=== PATIENT | female | born 1965 | race Caucasian/White ===

== ENCOUNTER → 2020-07-07 14:01 | Outpatient (CLI) | payer OTHER, SELFPAY ==
--- NOTE | 2020-07-07 14:10 | XR_ITS ---
PROCEDURE: XR WRIST LT MIN 3V CLINICAL INDICATION: BL wrist Pain COMPARISON: No exams were available for comparison FINDINGS: No fracture or dislocation. No lytic or blastic change. There is normal mineralization. Mild osteoarthritic changes present involving metacarpal-carpal joint. There are well-circumscribed calcific densities along the volar aspect of the base of the 1st metacarpal. Other findings:There is a cystic area involving scaphoid measuring 10 x 5 mm. IMPRESSION: Degenerative changes with osteoarthritis at the 1st metacarpal-carpal joint Nonspecific cyst of the scaphoid Dictated by: Dev Chow MD 07/07/2020 16:49 Dev Chow MD in [place] 07/07/2020 16:49
--- NOTE | 2020-07-07 14:10 | XR_ITS ---
PROCEDURE: XR WRIST RT MIN 3V CLINICAL INDICATION: BL wrist pain COMPARISON: No exams were available for comparison FINDINGS: No fracture or dislocation. No lytic or blastic change. There is normal mineralization. There are mild osteoarthritic changes the 1st metacarpal-carpal joint. Small cystic areas present within the lunate along the ulnar aspect. Other findings:None. IMPRESSION: Mild osteoarthritis 1st metacarpal-carpal joint Dictated by: Dev Chow MD 07/07/2020 16:42 Dev Chow MD in [place] 07/07/2020 16:42
== END ==
PROVIDERS: PCP Nurse Practitioner; Visit Provider Orthopaedic Surgery
DX: M25.531 Pain in right wrist (principal); M25.532 Pain in left wrist
CPT/HCPCS: 73110